=== PATIENT | female | born 1970 | race Caucasian/White ===

== ENCOUNTER 2017-04-08 20:24 | Emergency (ER) | payer OTHER ==
[~2017-04-08] VITALS: Ht 170.2 cm; Wt 66.2 kg
[~2017-04-08 20:24] MED LIST: SERT25TA PO
[2017-04-08] MEDS ORDERED: DIPHENHYDRAMINE 50 MG/ML, 1ML IVPush ONE (21:00)
[2017-04-08] MEDS: DEXAMETHASONE 4 MG/ML, 1ML IVPush ONE ×2 (21:00→22:26)
[2017-04-08] MEDS ORDERED: KETOROLAC 30 MG/1 ML IVPush ONE (21:00)
[2017-04-08] MEDS ORDERED: METOCLOPRAMIDE 5 MG/ML, 2ML IVPush ONE (21:00)
[2017-04-08] MEDS ORDERED: ACETAMINOPHEN 500 MG TABLET PO ONE (21:00)
[2017-04-08] MEDS ORDERED: SODIUM CHLORIDE FLUSH 10ML SYR IVF ONE (21:00)
[2017-04-08] MEDS ORDERED: SODIUM CHLORIDE 0.9% 1,000ML IVBOLUS ONE (21:00)
[2017-04-08 21:23] LABS: MEAN CORPUSCULAR HEMOGLOBIN 31.1 pg (27.0-34.8); MEAN CORPUSCULAR VOLUME 91.3 fL (80-100); PLATELET COUNT 200 x10^3/uL (130-400); RED BLOOD COUNT 4.44 x10^6/uL (3.82-5.3); RED CELL DISTRIBUTION WIDTH 13.9 % (9.6-15.2)
[2017-04-08 21:33] LABS: ALBUMIN 3.7 g/dL (3.4-5.0); ANION GAP 10 mmol/L (5-15); CALCIUM 8.5 mg/dL (8.5-10.1); CHLORIDE 101 mmol/L (98-107); CREATININE 0.71 mg/dL (0.55-1.02)
[2017-04-08 21:45] LABS: BASOPHILS # (AUTO) 0.01 x10^3/uL (0-0.1); BASOPHILS % (AUTO) 0 % (0-1); EOSINOPHILS % (AUTO) 0 % (1-7); LYMPHOCYTES # (AUTO) 1.29 x10^3/uL (1-3.4); LYMPHOCYTES % (AUTO) 52 % (22-44); MD SCAN; MONOCYTES # (AUTO) 0.16 x10^3/uL (0.2-0.8); MONOCYTES % (AUTO) 6 % (2-9); NEUTROPHILS # (AUTO) 1.05 x10^3/uL (1.8-6.8); NEUTROPHILS % (AUTO) 42 % (42-75)
[2017-04-08] MEDS ORDERED: ACETAMINOPHEN 500 MG TABLET ONE (21:53)
[2017-04-08] MEDS ORDERED: DEXAMETHASONE 4 MG/ML, 5ML ONE (21:53)
[2017-04-08] MEDS ORDERED: DIPHENHYDRAMINE 50 MG/ML, 1ML ONE (21:53)
[2017-04-08] MEDS ORDERED: KETOROLAC 30 MG/1 ML ONE (21:53)
[2017-04-08] MEDS ORDERED: METOCLOPRAMIDE 5 MG/ML, 2ML ONE (22:24)
[2017-04-08] MEDS ORDERED: LIDOCAINE 1%, 20ML INFIL ONE (23:00)
[2017-04-09 00:14] LABS: GLUCOSE, CSF 49 mg/dL (40-80); TOTAL PROTEIN,CSF 40 mg/dL (15-45)
[2017-04-09 00:40] LABS: CULTURE INDICATED? YES; MICROSCOPIC INDICATED
[2017-04-09 00:51] VITALS: BP 98/59
== END 2017-04-09 01:25 | disposition home or self-care (01) ==
LOC: ED 21:50
DX: B34.9 Viral infection, unspecified (principal); N30.00 Acute cystitis without hematuria; G43.C0 Periodic headache syndromes in child or adult, not intractable
CPT/HCPCS: 36415; 62270; 70450; 71046; 80048; 81001; 82040; 82945; 83605; 84145; 84157; 85025; 86308; 87040; 87070; 87086; 87205; 87252; 89051; 96361; 96374; 96375; 99285; J1200; J1885; J2765; J7030; J1100

== ENCOUNTER 2017-04-11 13:49 | Emergency (ER) | payer OTHER ==
[~2017-04-11] VITALS: Ht 170.2 cm; Wt 66.5 kg
[2017-04-11] MEDS ORDERED: KETOROLAC 30 MG/1 ML IVPush ONE (15:00)
[2017-04-11] MEDS ORDERED: DEXAMETHASONE 4 MG/ML, 5ML IVPush ONE (15:00)
[2017-04-11] MEDS ORDERED: METOCLOPRAMIDE 5 MG/ML, 2ML IVPush ONE (15:00)
[2017-04-11] MEDS ORDERED: DIPHENHYDRAMINE 50 MG/ML, 1ML IVPush ONE (15:00)
[2017-04-11] MEDS ORDERED: SODIUM CHLORIDE 0.9% 1,000ML IVBOLUS ONE (15:00)
[2017-04-11] MEDS ORDERED: SODIUM CHLORIDE FLUSH 10ML SYR IVF ONE (15:00)
[2017-04-11] MEDS ORDERED: DIPHENHYDRAMINE 50 MG/ML, 1ML ONE (15:05)
[2017-04-11] MEDS ORDERED: METOCLOPRAMIDE 5 MG/ML, 2ML ONE (15:05)
[2017-04-11] MEDS ORDERED: KETOROLAC 30 MG/1 ML ONE (15:05)
[2017-04-11] MEDS ORDERED: DEXAMETHASONE 4 MG/ML, 5ML ONE (15:05)
[2017-04-11] MEDS ORDERED: CIPR500T87 PO (15:22)
[2017-04-11 15:26] LABS: BASOPHILS # (AUTO) 0.02 x10^3/uL (0-0.1); BASOPHILS % (AUTO) 1 % (0-1); EOSINOPHILS # (AUTO) 0.02 x10^3/uL (0-0.4); EOSINOPHILS % (AUTO) 1 % (1-7); LYMPHOCYTES # (AUTO) 1.49 x10^3/uL (1-3.4); LYMPHOCYTES % (AUTO) 44 % (22-44); MD NO; MEAN CORPUSCULAR HEMOGLOBIN 30.8 pg (27.0-34.8); MEAN CORPUSCULAR HGB CONC 33.4 g/dL (32.4-35.8); MEAN CORPUSCULAR VOLUME 92.1 fL (80-100); MEAN PLATELET VOLUME 8.7 fL (7.4-10.4); MONOCYTES # (AUTO) 0.36 x10^3/uL (0.2-0.8); MONOCYTES % (AUTO) 11 % (2-9); NEUTROPHILS # (AUTO) 1.51 x10^3/uL (1.8-6.8); NEUTROPHILS % (AUTO) 44 % (42-75); PLATELET COUNT 262 x10^3/uL (130-400); RED BLOOD COUNT 4.08 x10^6/uL (3.82-5.3); RED CELL DISTRIBUTION WIDTH 14.1 % (9.6-15.2)
[2017-04-11 15:31] LABS: ALBUMIN 3.4 g/dL (3.4-5.0); ANION GAP 5 mmol/L (5-15); CALCIUM 8.3 mg/dL (8.5-10.1); CHLORIDE 107 mmol/L (98-107); CREATININE 0.65 mg/dL (0.55-1.02)
[2017-04-11 16:47] VITALS: BP 136/85
== END 2017-04-11 16:49 | disposition home or self-care (01) ==
LOC: ED 14:08
DX: G44.209 Tension-type headache, unspecified, not intractable (principal)
CPT/HCPCS: 36415; 80048; 82040; 85025; 96361; 96374; 96375; 99285; J1100; J1200; J1885; J2765; J7030